=== PATIENT | male | born 1990 | race Caucasian/White ===

== ENCOUNTER 2017-07-30 13:36 | Emergency (ER) | payer SELFPAY ==
[2017-07-30] MEDS ORDERED: ACETAMINOPHEN 325 MG TABLET PO ONE (14:46)
--- NOTE | 2017-07-30 14:47 | ER Document Report ---
HPI - HPI Patient complains to provider of: r hand injury Onset: Other - 3 days Onset/Duration: Persistent Quality of pain: Achy Pain Level: 1 Context: Patient states that he punched a door 2 days ago injuring his right hand. Patient states he has had some hand swelling. Patient states he has been using his hand normally since then. Associated Symptoms: Other - Right hand tenderness with swelling Exacerbated by: Movement Relieved by: Denies Similar symptoms previously: No Recently seen / treated by doctor: No - ROS ROS below otherwise negative: Yes Systems Reviewed and Negative: Yes All other systems reviewed and negative - CONSTITUTIONAL Constitutional: DENIES: Fever - MUSCULOSKELETAL Musculoskeletal: REPORTS: Extremity pain - right hand, Swelling - DERM Skin Color: Normal Past Medical History - General Information source: Patient - Social History Smoking Status: Current Every Day Smoker Chew tobacco use (# tins/day): No Smoking Education Provided: Yes Frequency of alcohol use: None Drug Abuse: None Lives with: Family Family History: Reviewed & Not Pertinent Patient has suicidal ideation: No Patient has homicidal ideation: No - Medical History Medical History: Negative Renal/ Medical History: Denies: Hx Peritoneal Dialysis Surgical Hx: Negative - Immunizations Hx Diphtheria, Pertussis, Tetanus Vaccination: No Vertical Provider Document - CONSTITUTIONAL Agree With Documented VS: Yes Exam Limitations: No Limitations General Appearance: WD/WN, No Apparent Distress - INFECTION CONTROL TRAVEL OUTSIDE OF THE [place] IN LAST 30 DAYS: No - HEENT HEENT: Atraumatic, Normocephalic - NECK Neck: Supple - RESPIRATORY Respiratory: No Respiratory Distress O2 Sat by Pulse Oximetry: 98 - CARDIOVASCULAR Pulses: Normal: Radial - MUSCULOSKELETAL/EXTREMETIES Musculoskeletal/Extremeties: MAEW, FROM, Tender - r hand tenderness over 5th MC , Edema. negative: Eccymosis - NEURO Level of Consciousness: Awake, Alert, Appropriate Motor/Sensory: No Motor Deficit - DERM Integumentary: Warm, Dry, No Rash Course - Re-evaluation Re-evalutation: 07/30/17 15:54 Controlled substance database reviewed Smoking cessation handout provided to patient Discussed with patient importance of follow-up with account review specialist for further management. Patient verbalized understanding and agrees with plan of care. - Vital Signs Vital signs: Temp Pulse Resp BP Pulse Ox 98.1 F 95 18 135/97 H 98 07/30/17 13:54 07/30/17 13:54 07/30/17 13:54 07/30/17 13:54 07/30/17 13:54 - Diagnostic Test Radiology reviewed: Image reviewed, Reports reviewed Procedures - Immobilization Right Hand Pre-Proc Neuro Vasc Exam: Normal Immobilizer type: Ulnar Performed by: PCT Post-Proc Neuro Vasc Exam: Normal Alignment checked and good: Yes Discharge - Discharge Clinical Impression: Fracture of fifth metacarpal bone Qualifiers: Encounter type: initial encounter Fracture type: closed Metacarpal location: shaft Fracture alignment: displaced Laterality: right Qualified Code(s): S62.326A - Displaced fracture of shaft of fifth metacarpal bone, right hand, initial encounter for closed fracture Condition: Stable Disposition: HOME, SELF-CARE Instructions: Fractured Fifth Metacarpal ([facility]), Ice & Elevation ([facility]), Oral Narcotic Medication ([facility]), Splint Precautions ([facility]) Additional Instructions: Return immediately for any new or worsening symptoms Followup with your primary care provider, call tomorrow to make a followup appointment It is important that you follow-up with an account review specialist for further management of your hand fracture, call tomorrow to make a follow-up appointment. Let them know that you are seen in the emergency department Prescriptions: Hydrocodone/Acetaminophen [Jetmore 5-325 Tablet] 1 each PO Q4 PRN #15 tablet PRN Reason: Forms: Smoking Cessation Education, Return to Work Referrals: [facility] [Provider Group] - Follow up tomorrow CASSIA LEE MD [ACTIVE STAFF] - Follow up tomorrow
--- NOTE | 2017-07-30 15:28 | RADIOLOGY REPORT (SQ) ---
EXAM DESCRIPTION: HAND RIGHT 3 VIEWS COMPLETED DATE/TIME: 07/30/2017 3:15 pm REASON FOR STUDY: punched door, r hand pain COMPARISON: None. EXAM PARAMETERS: NUMBER OF VIEWS: Three views. TECHNIQUE: AP, lateral and oblique radiographic images acquired of the right hand. LIMITATIONS: None. FINDINGS: MINERALIZATION: Normal. BONES: Acute fracture involving the distal aspect of the 5th metacarpal. There is mild displacement and moderate angulation. Small bony densities adjacent to the seconds metacarpophalangeal joint whic h appear chronic. JOINTS: No effusions. SOFT TISSUES: Associated soft tissue swelling. OTHER: No other significant finding. IMPRESSION: Acute fracture involving the 5th metacarpal TECHNICAL DOCUMENTATION: JOB ID: [id number] [employer]- All Rights Reserved
[2017-07-30 16:33] VITALS: BP 128/79
== END 2017-07-30 16:32 | disposition home or self-care (01) ==
LOC: ER 13:36
DX: S62.326A Displaced fracture of shaft of fifth metacarpal bone, right hand, initial encounter for closed fracture (principal); M79.641 Pain in right hand; W22.8XXA Striking against or struck by other objects, initial encounter; F17.200 Nicotine dependence, unspecified, uncomplicated
CPT/HCPCS: 99283

== ENCOUNTER 2017-09-18 14:57 | Inpatient (IN) | payer SELFPAY ==
[2017-09-18] MEDS ORDERED: NORMAL SALINE 1000 ML 1,000 ML IV ONE ×2 (16:42→19:59)
--- NOTE | 2017-09-18 16:43 | ER Document Report ---
ED GI/ - General Chief Complaint: Urinary Problem Stated Complaint: BLOOD IN URINE Time Seen by Provider: 09/18/17 15:37 Mode of Arrival: Ambulatory Information source: Patient Notes: 26-year-old male presents to ED for complaint of blood in his urine 2 days with body cramping. He states that he started lifting weights on September 15 and he started noticing blood in his urine on September 16. He states the muscle cramps in his arms and chest started on the . He states he became more concerned so he came to the emergency room to have this checked out. TRAVEL OUTSIDE OF THE [place] IN LAST 30 DAYS: No - HPI Patient complains to provider of: Hematuria, Other - Muscle cramping Onset: Other - September 16 Quality of pain: Cramping Severity at maximum: Moderate Severity in ED: Moderate Pain Level: 2 Associated symptoms: Hematuria, Other - Muscle cramping Exacerbated by: Denies Relieved by: Denies Similar symptoms previously: Yes Recently seen / treated by doctor: No - Related Data Allergies/Adverse Reactions: No Known Allergies Allergy (Verified 09/18/17 14:58) Past Medical History - General Information source: Patient - Social History Smoking Status: Current Every Day Smoker Cigarette use (# per day): No Chew tobacco use (# tins/day): No Smoking Education Provided: No Frequency of alcohol use: Occasional Drug Abuse: None Lives with: Family Family History: Reviewed & Not Pertinent Patient has suicidal ideation: No Patient has homicidal ideation: No - Past Medical History Cardiac Medical History: Reports: None Pulmonary Medical History: Reports: None EENT Medical History: Reports: None Neurological Medical History: Reports: None Endocrine Medical History: Reports: None Renal/ Medical History: Reports: None Malignancy Medical History: Reports None GI Medical History: Reports: None Musculoskeltal Medical History: Reports None Skin Medical History: Reports None Psychiatric Medical History: Reports: None Traumatic Medical History: Reports: None Infectious Medical History: Reports: None Surgical Hx: Negative Past Surgical History: Reports: None - Immunizations Hx Diphtheria, Pertussis, Tetanus Vaccination: No Review of Systems - Review of Systems Notes: Constitutional: [PRESENT: as per HPI. ABSENT: chills, fever(s), headache(s), weight gain, weight loss] Eyes: [ABSENT: visual disturbances] Ears: [ABSENT: hearing changes] Cardiovascular: [ABSENT: chest pain, dyspnea on exertion, edema, orthropnea, palpitations] Respiratory: [ABSENT: cough, hemoptysis] Gastrointestinal: [ABSENT: abdominal pain, constipation, diarrhea, hematemesis, hematochezia, nausea, vomiting] Genitourinary: [ABSENT: dysuria] anterior since September 15 Musculoskeletal: [ABSENT: joint swelling] muscle spasms to arms chest back Integumentary: [ABSENT: rash, wounds] Neurological: [ABSENT: abnormal gait, abnormal speech, confusion, dizziness, focal weakness, syncope] Psychiatric: [ABSENT: anxiety, depression, homicidal ideation, suicidal ideation ] Endocrine: [ABSENT: cold intolerance, heat intolerance, menstrual abnormalities , polydipsia, polyuria] Hematologic/Lymphatic: [ABSENT: easy bleeding, easy bruising, lymphadenopathy] Physical Exam - Vital signs Vitals: Temp Pulse Resp BP Pulse Ox 98.6 F 99 16 160/91 H 99 09/18/17 15:13 09/18/17 15:13 09/18/17 15:13 09/18/17 15:13 09/18/17 15:13 - Notes Notes: PHYSICAL EXAMINATION: GENERAL: Well-appearing, well-nourished and in no acute distress. HEAD: Atraumatic, normocephalic. EYES: Pupils equal round and reactive to light, extraocular movements intact, sclera anicteric, conjunctiva are normal. ENT: Nares patent, oropharynx clear without exudates. Moist mucous membranes. NECK: Normal range of motion, supple without lymphadenopathy LUNGS: Breath sounds clear to auscultation bilaterally and equal. No wheezes rales or rhonchi. HEART: Regular rate and rhythm without murmurs ABDOMEN: Soft, nontender, nondistended abdomen. No guarding, no rebound. No masses appreciated. Musculoskeletal: Normal range of motion, no pitting or edema. No cyanosis. NEUROLOGICAL: Cranial nerves grossly intact. Normal speech, normal gait. Normal sensory, motor exams PSYCH: Normal mood, normal affect. SKIN: Warm, Dry, normal turgor, no rashes or lesions noted. Course - Vital Signs Vital signs: Temp Pulse Resp BP Pulse Ox 98.3 F 68 19 140/81 H 98 09/18/17 21:05 09/18/17 23:03 09/18/17 22:02 09/18/17 22:02 09/18/17 22:02 - Laboratory Result Diagrams: 09/18/17 17:16 Laboratory results interpreted by me: 09/18/17 09/18/17 09/18/17 15:02 17:16 17:16 AST 2000 H ALT 581 H Creatine Kinase > 885571 H Urine Protein 100 H Urine Blood LARGE H Discharge - Discharge Clinical Impression: Rhabdomyolysis Qualifiers: Rhabdomyolysis type: non-traumatic Qualified Code(s): M62.82 - Rhabdomyolysis Disposition: ADMITTED INPATIENT Admitting Provider: Hospitalist - [facility] Unit Admitted: Telemetry
[2017-09-18 17:20] LABS: APPEARANCE,URINE CLEAR; BILIRUBIN,URINE NEGATIVE (NEGATIVE); COLOR,URINE AMBER; GLUCOSE, URINE NEGATIVE (NEGATIVE); KETONES,URINE NEGATIVE (NEGATIVE); LEUKOCYTE ESTERASE,URINE NEGATIVE (NEGATIVE); NITRITE,URINE NEGATIVE (NEGATIVE); PROTEIN,URINE 100 mg/dL (NEGATIVE); URINE SPECIFIC GRAVITY 1.011; UROBILINOGEN,URINE NEGATIVE mg/dL (<2.0)
[2017-09-18 17:47] LABS: ALANINE AMINOTRANSFERASE 581 U/L (21-72); ALBUMIN 4.3 g/dL (3.5-5.0); ALKALINE PHOSPHATASE 48 U/L (38-126); ANION GAP 9 (5-19); BILIRUBIN,DIRECT 0.1 mg/dL (0.0-0.4); BILIRUBIN,TOTAL 0.5 mg/dL (0.2-1.3); BLOOD UREA NITROGEN 7 mg/dL (7-20); CARBON DIOXIDE 30 mmol/L (22-30); CHLORIDE 103 mmol/L (98-107); GLUCOSE 104 mg/dL (75-110); POTASSIUM 3.7 mmol/L (3.6-5.0); SODIUM 142.2 mmol/L (137-145); TOTAL PROTEIN 6.3 g/dL (6.3-8.2)
[2017-09-18 18:09] LABS: ASPARTATE AMINO TRANSFERASE 2000 U/L (17-59)
[2017-09-18 19:34] LABS: INTERNATIONAL RATION (INR) 0.92; PARTIAL THROMBOPLASTIN TIME 25.2 SEC (23.5-35.8); PROTHROMBIN TIME 13.1 SEC (11.4-15.4)
[2017-09-18] MEDS: NORMAL SALINE 1000 ML 1,000 ML IV PRN ×2 (20:01→21:08)
[2017-09-18 20:46] LABS: CREATINE KINASE > 160000 U/L (55-170)
[2017-09-18 21:25] LABS: ARTERIAL BLOOD BASE EXCESS 0 mmol/L; ARTERIAL BLOOD HCO3 26.5 mmol/L (20-26); ARTERIAL BLOOD O2 SATURATION 47.6 % (94-98); ARTERIAL BLOOD PCO2 49.8 mmHg (35-45); ARTERIAL BLOOD PH 7.34 (7.35-7.45)
[2017-09-18 21:29] LABS: ARTERIAL BLOOD FIO2 ROOM AIR; ARTERIAL BLOOD PO2 27.6 mmHg (80-100)
[2017-09-18] MEDS ORDERED: ACETAMINOPHEN 325 MG TABLET PO PRN (21:43)
[2017-09-18] MEDS ORDERED: PROMETHAZINE HCL INJ 25 MG/1 ML VIAL IV PRN (21:43)
[2017-09-18] MEDS ORDERED: INFLUENZA ADLT QUAD (36MOS+) 2017-18 VAC 0.5 ML SYR IM PRN (23:11)
--- NOTE | 2017-09-19 04:19 | PDOC H&P ---
History of Present Illness Admission Date/PCP: 09/18/17 20:52 Patient complains of: Hematuria and increase muscle cramps for the last 3-4 days. History of Present Illness: AASHISH SANDS is a 26 year old male smoker with no significant medical history was admitted with above-mentioned complaints. According to the patient , he started lifting weights on 09/15/2016 for about 2 hours. He felt muscle tightness but he did it again the following day. He noticed that he had dark, bloody urine so he did not exercise on 09/17/2017 and decided to come to the hospital today for further management and treatment. He denied any chest pain, shortness of breath, fever chills, nausea, vomiting or any abdominal pain, diarrhea or constipation or dysuria. He also denied any focal weakness. In the ED, his temperature was 98.6, heart rate 99, respiratory rate 16, blood pressure 160/91 with oxygen saturation of 99% on room air. His CPK was more than 160,000 and he had elevated AST/ALT. His UA showed large blood. He received 3 L of normal saline and was started on normal saline at 200 mL/h. Past Medical History Cardiac Medical History: Reports: None Pulmonary Medical History: Reports: None EENT Medical History: Reports: None Neurological Medical History: Reports: None Endocrine Medical History: Reports: None Renal/ Medical History: Reports: None Malignancy Medical History: Reports: None GI Medical History: Reports: None Musculoskeltal Medical History: Reports: None Skin Medical History: Reports: None Psychiatric Medical History: Reports: None Traumatic Medical History: Reports: None Infectious Medical History: Reports: None Past Surgical History Past Surgical History: Reports: None Social History Lives with: Family Smoking Status: Current Every Day Smoker Cigarettes Packs Per Day: 0.5 - For 5-6 year Frequency of Alcohol Use: None Hx Recreational Drug Use: No - Advance Directive Resuscitation Status: Full Code Family History Parental Family History Reviewed: Yes - No cardiac or diabetic family history. Children Family History Reviewed: No Sibling(s) Family History Reviewed.: Yes Medication/Allergy Home Medications: No Home Medications 09/18/17 Allergies/Adverse Reactions: No Known Allergies Allergy (Verified 09/18/17 14:58) Review of Systems ROS unobtainable: Other - Pertinent positives and negatives as detailed in the HPI. Physical Exam Vital Signs: Temp Pulse Resp BP Pulse Ox 98.3 F 73 16 144/94 H 99 09/18/17 21:05 09/18/17 21:05 09/18/17 21:05 09/18/17 21:05 09/18/17 21:05 General appearance: PRESENT: no acute distress, well-developed, well-nourished Head exam: PRESENT: atraumatic, normocephalic Eye exam: PRESENT: conjunctiva pink, PERRLA. ABSENT: scleral icterus Mouth exam: PRESENT: moist, tongue midline Neck exam: PRESENT: full ROM Respiratory exam: PRESENT: clear to auscultation jessica. ABSENT: rales, rhonchi, wheezes Cardiovascular exam: PRESENT: RRR, +S1, +S2 Pulses: PRESENT: normal dorsalis pedis pul GI/Abdominal exam: PRESENT: normal bowel sounds, soft. ABSENT: distended, guarding, rebound, tenderness Rectal exam: PRESENT: deferred Extremities exam: PRESENT: full ROM Neurological exam: PRESENT: alert, altered, awake, oriented to person, oriented to place, oriented to time. ABSENT: CN II-XII grossly intact, motor sensory deficit Skin exam: PRESENT: dry, warm. ABSENT: erythema Results Laboratory Results: 09/18/17 21:00 Carbonic Acid 1.50 H HCO3/H2CO3 Ratio 17:1 ABG pH 7.34 L ABG pCO2 49.8 H ABG pO2 27.6 L* ABG HCO3 26.5 H ABG O2 Saturation 47.6 L ABG Base Excess 0 FiO2 ROOM AIR Assessment & Plan - Diagnosis (1) Rhabdomyolysis Qualifiers: Rhabdomyolysis type: non-traumatic Qualified Code(s): M62.82 - Rhabdomyolysis Is this a current diagnosis for this admission?: Yes Plan: We will continue aggressive hydration and follow-up serial CPK. (2) Elevated transaminase level Is this a current diagnosis for this admission?: Yes Plan: In the setting of rhabdomyolysis. We will continue aggressive hydration and follow-up CMP. Hepatitis profile was ordered by the ED. He denied any alcohol. (3) Smoker Is this a current diagnosis for this admission?: Yes Plan: less than 1ppd for 5-6 years. He is trying to quit him. He refused a nicotine patch (4) Hematuria Qualifiers: Hematuria type: unspecified type Qualified Code(s): R31.9 - Hematuria, unspecified Is this a current diagnosis for this admission?: Yes Plan: secondary to rhabdo. Management per #1.
[2017-09-19 05:38] LABS: HEMATOCRIT 42.2 % (37.9-51.0); HEMOGLOBIN 14.7 g/dL (13.5-17.0); MEAN CORPUSCULAR HEMOGLOBIN 31.3 pg (27.0-33.4); MEAN CORPUSCULAR HGB CONC 34.9 g/dL (32.0-36.0); MEAN CORPUSCULAR VOLUME 90 fl (80-97); PLATELET COUNT 198 10^3/uL (150-450); RED BLOOD COUNT 4.71 10^6/uL (4.35-5.55); RED CELL DISTRIBUTION WIDTH 13.4 % (11.5-14.0); WHITE BLOOD COUNT 7.7 10^3/uL (4.0-10.5)
[2017-09-19 06:03] LABS: ALANINE AMINOTRANSFERASE 563 U/L (21-72); ALBUMIN 3.2 g/dL (3.5-5.0); ALKALINE PHOSPHATASE 37 U/L (38-126); ANION GAP 5 (5-19); BILIRUBIN,DIRECT 0.4 mg/dL (0.0-0.4); BILIRUBIN,TOTAL 0.6 mg/dL (0.2-1.3); BLOOD UREA NITROGEN 7 mg/dL (7-20); CALCIUM 9.2 mg/dL (8.4-10.2); CARBON DIOXIDE 29 mmol/L (22-30); CHLORIDE 109 mmol/L (98-107); GLUCOSE 88 mg/dL (75-110); POTASSIUM 4.2 mmol/L (3.6-5.0); SODIUM 142.7 mmol/L (137-145); TOTAL PROTEIN 5.3 g/dL (6.3-8.2)
[2017-09-19 06:29] LABS: ASPARTATE AMINO TRANSFERASE 2036 U/L (17-59)
--- NOTE | 2017-09-19 08:27 | RADIOLOGY REPORT (SQ) ---
EXAM DESCRIPTION: U/S ABDOMEN LIMITED W/O DOP COMPLETED DATE/TIME: 09/19/2017 7:35 am REASON FOR STUDY: elevated liver enzymes/ COMPARISON: None. TECHNIQUE: Dynamic and static grayscale images acquired of the abdomen and recorded on PACS. Additio nal selected color Doppler and spectral images recorded. LIMITATIONS: None. FINDINGS: PANCREAS: No masses. Visualized pancreatic duct normal caliber. LIVER: No masses. Echotexture normal. LIVER VASCULATURE: Normal directional flow of the main portal vein and hepatic veins. GALLBLADDER: No stones. Normal wall thickness. No pericholecystic fluid. ULTRASOUND-DETECTED OLIVARES'S SIGN: Negative. INTRAHEPATIC DUCTS AND COMMON DUCT: CBD and intrahepatic ducts normal caliber. No filling defects. INFERIOR VENA CAVA: Normal flow. AORTA: No aneurysm. RIGHT KIDNEY: Normal size. Normal echogenicity. No solid or suspicious masses. No hydronephrosis. No calcifications. PERITONEAL AND RIGHT PLEURAL SPACE: No ascites or effusions. OTHER: No other significant findings. IMPRESSION: NORMAL RIGHT UPPER QUADRANT ULTRASOUND. TECHNICAL DOCUMENTATION: JOB ID: [id number] All Rights Reserved Reading location - IP/workstation name: [email or web address]
--- NOTE | 2017-09-19 12:12 | PDOC PROGRESS REPORT ---
Subjective Progress Note for:: 09/19/17 Subjective:: Mr. Cancino is still feeling diffuse myalgias. He states his urine has cleared to a normal light yellow color. No evidence of bleeding. No chest pain or difficulty breathing. No flank pain. No headache or vision changes. No unusual weakness or confusion. Reason For Visit: RHABDOMYOLYSIS Physical Exam Vital Signs: Temp Pulse Resp BP Pulse Ox 98.3 F 58 L 19 124/79 100 09/19/17 07:14 09/19/17 07:14 09/19/17 07:14 09/19/17 07:14 09/19/17 07:14 Intake & Output 09/18/17 09/19/17 09/20/17 06:59 06:59 06:59 Intake Total 2800 Balance 2800 General appearance: PRESENT: no acute distress, cooperative, well-developed, well-nourished Head exam: PRESENT: atraumatic, normocephalic Eye exam: PRESENT: conjunctiva pink, EOMI. ABSENT: periorbital swelling Ear exam: PRESENT: normal external ear exam. ABSENT: drainage Mouth exam: PRESENT: neck supple Neck exam: PRESENT: full ROM. ABSENT: lymphadenopathy Respiratory exam: PRESENT: clear to auscultation jessica. ABSENT: rales, rhonchi, wheezes Cardiovascular exam: PRESENT: RRR. ABSENT: systolic murmur Pulses: PRESENT: normal radial pulses GI/Abdominal exam: PRESENT: normal bowel sounds, soft. ABSENT: distended, guarding, tenderness Rectal exam: PRESENT: deferred Extremities exam: ABSENT: joint swelling, pedal edema, tenderness, +1 edema Musculoskeletal exam: PRESENT: normal inspection Neurological exam: PRESENT: alert, awake, oriented to person, oriented to place , oriented to situation, CN II-XII grossly intact Psychiatric exam: PRESENT: appropriate affect. ABSENT: anxious Skin exam: PRESENT: dry, intact, warm Results Laboratory Results: 09/19/17 04:45 09/19/17 04:45 09/18/17 09/19/17 09/19/17 21:00 04:45 04:45 WBC 7.7 RBC 4.71 Hgb 14.7 Hct 42.2 MCV 90 MCH 31.3 MCHC 34.9 RDW 13.4 Plt Count 198 Carbonic Acid 1.50 H HCO3/H2CO3 Ratio 17:1 ABG pH 7.34 L ABG pCO2 49.8 H ABG pO2 27.6 L* ABG HCO3 26.5 H ABG O2 Saturation 47.6 L ABG Base Excess 0 FiO2 ROOM AIR Sodium 142.7 Potassium 4.2 Chloride 109 H Carbon Dioxide 29 Anion Gap 5 BUN 7 Creatinine 0.86 Est GFR ( Amer) > 60 Est GFR (Non-Af Amer) > 60 Glucose 88 Calcium 9.2 Total Bilirubin 0.6 AST 2036 H ALT 563 H Alkaline Phosphatase 37 L Total Protein 5.3 L Albumin 3.2 L 09/18/17 23:21 Creatine Kinase 220566 H Impressions: Abdomen Ultrasound 09/19/17 00:00 IMPRESSION: NORMAL RIGHT UPPER QUADRANT ULTRASOUND. Assessment & Plan - Diagnosis (1) Rhabdomyolysis Qualifiers: Rhabdomyolysis type: non-traumatic Qualified Code(s): M62.82 - Rhabdomyolysis Is this a current diagnosis for this admission?: Yes Plan: This is secondary to aggressive weight lifting. Patient states he does not take any steroids or other supplements. Weightlifting safety education provided. We will continue with aggressive hydration and monitoring of serial CPK. At this point his renal function is normal. We will continue to monitor. (2) Elevated transaminase level Is this a current diagnosis for this admission?: Yes Plan: Possibly secondary to the rhabdomyolysis. His right upper quadrant ultrasound is normal. We will continue to treat rhabdomyolysis and follow LFTs. Hepatitis panel pending. (3) Smoker Is this a current diagnosis for this admission?: Yes Plan: We will encourage cessation. He smokes less than 1 pack per day for 5-6 years. As already noted he is trying to quit and does not want a nicotine patch. - Time Time Spent with patient: 25-34 minutes Medications reviewed and adjusted accordingly: Yes Anticipated discharge: Home - Inpatient Certification Based on my medical assessment, after consideration of the patient's comorbidities, presenting symptoms, or acuity I expect that the services needed warrant INPATIENT care.: Yes I certify that my determination is in accordance with my understanding of Medicare's requirements for reasonable and necessary INPATIENT services [42 CFR 412.3e].: Yes Medical Necessity: Need Close Monitoring Due to Risk of Patient Decompensation, Risk of Complication if Not Cared For in Hospital
[2017-09-19] MEDS: NORMAL SALINE 1000 ML 1,000 ML IV PRN (20:19)
[2017-09-20 03:37] LABS: HEPATITIS A AB IGM Negative (Negative); HEPATITIS B CORE AB IGM Negative (Negative); HEPATITS B SURFACE ANTIGEN Negative (Negative)
[2017-09-20 06:03] LABS: HEMOGLOBIN 14.7 g/dL (13.5-17.0); MEAN CORPUSCULAR HEMOGLOBIN 30.9 pg (27.0-33.4); MEAN CORPUSCULAR HGB CONC 34.3 g/dL (32.0-36.0); MEAN CORPUSCULAR VOLUME 90 fl (80-97); PLATELET COUNT 192 10^3/uL (150-450); RED BLOOD COUNT 4.77 10^6/uL (4.35-5.55); RED CELL DISTRIBUTION WIDTH 13.2 % (11.5-14.0); WHITE BLOOD COUNT 6.3 10^3/uL (4.0-10.5)
[2017-09-20 06:20] LABS: ANION GAP 6 (5-19); BLOOD UREA NITROGEN 5 mg/dL (7-20); CALCIUM 9.4 mg/dL (8.4-10.2); CARBON DIOXIDE 29 mmol/L (22-30); CHLORIDE 107 mmol/L (98-107); GLUCOSE 112 mg/dL (75-110); POTASSIUM 3.9 mmol/L (3.6-5.0); SODIUM 142.1 mmol/L (137-145)
[2017-09-20] MEDS: NORMAL SALINE 1000 ML 1,000 ML IV PRN (06:39)
[2017-09-20 12:44] LABS: ALANINE AMINOTRANSFERASE 653 U/L (21-72); ALBUMIN 3.3 g/dL (3.5-5.0); ALKALINE PHOSPHATASE 41 U/L (38-126); BILIRUBIN,DIRECT 0.2 mg/dL (0.0-0.4); BILIRUBIN,TOTAL 0.4 mg/dL (0.2-1.3); TOTAL PROTEIN 5.2 g/dL (6.3-8.2)
[2017-09-20 13:09] LABS: ASPARTATE AMINO TRANSFERASE 1922 U/L (17-59)
[2017-09-20 17:03] LABS: HEPATITIS C VIRUS ANTIBODY <0.1 s/co ratio (0.0-0.9)
[2017-09-20 18:02] LABS: APPEARANCE,URINE SLIGHTLY-CLOUDY; BILIRUBIN,URINE NEGATIVE (NEGATIVE); COLOR,URINE YELLOW; GLUCOSE, URINE NEGATIVE (NEGATIVE); KETONES,URINE NEGATIVE (NEGATIVE); LEUKOCYTE ESTERASE,URINE NEGATIVE (NEGATIVE); NITRITE,URINE NEGATIVE (NEGATIVE); PROTEIN,URINE 30 mg/dL (NEGATIVE); URINE SPECIFIC GRAVITY 1.009; UROBILINOGEN,URINE NEGATIVE mg/dL (<2.0)
--- NOTE | 2017-09-20 18:31 | PDOC PROGRESS REPORT ---
Subjective Progress Note for:: 09/20/17 Subjective:: Patient's achiness is improving and almost resolved. He is urinating without difficulty. Urine color is normal yellow. No abdominal pain nausea or vomiting. He sleeping well. Eating and drinking well. Ambulating without difficulty. Reason For Visit: RHABDOMYOLYSIS Physical Exam Vital Signs: Temp Pulse Resp BP Pulse Ox 98.6 F 71 18 142/88 H 100 09/20/17 15:44 09/20/17 15:44 09/20/17 15:44 09/20/17 15:44 09/20/17 15:44 Intake & Output 09/19/17 09/20/17 09/21/17 06:59 06:59 07:59 Intake Total 2800 6077 2900 Output Total 1825 Balance 2800 4252 2900 Weight 97.7 kg General appearance: PRESENT: no acute distress, cooperative, well-developed, well-nourished Head exam: PRESENT: atraumatic, normocephalic Eye exam: PRESENT: conjunctiva pink Ear exam: PRESENT: normal external ear exam Mouth exam: PRESENT: neck supple, tongue midline Respiratory exam: PRESENT: clear to auscultation jessica, unlabored. ABSENT: rales , rhonchi, wheezes Cardiovascular exam: PRESENT: RRR. ABSENT: systolic murmur Pulses: PRESENT: normal radial pulses Vascular exam: PRESENT: normal capillary refill GI/Abdominal exam: PRESENT: normal bowel sounds, soft. ABSENT: distended, guarding, tenderness Extremities exam: ABSENT: pedal edema Musculoskeletal exam: PRESENT: normal inspection Neurological exam: PRESENT: alert, awake, oriented to person, oriented to place , oriented to situation, CN II-XII grossly intact Psychiatric exam: PRESENT: appropriate affect. ABSENT: anxious Skin exam: PRESENT: dry, warm Results Laboratory Results: 09/20/17 05:38 09/20/17 05:38 09/20/17 09/20/17 09/20/17 05:38 05:38 05:38 WBC 6.3 RBC 4.77 Hgb 14.7 Hct 43.0 MCV 90 MCH 30.9 MCHC 34.3 RDW 13.2 Plt Count 192 Sodium 142.1 Potassium 3.9 Chloride 107 Carbon Dioxide 29 Anion Gap 6 BUN 5 L Creatinine 0.74 Est GFR ( Amer) > 60 Est GFR (Non-Af Amer) > 60 Glucose 112 H Calcium 9.4 Total Bilirubin 0.4 AST 1922 H ALT 653 H Alkaline Phosphatase 41 Total Protein 5.2 L Albumin 3.3 L Urine Color Urine Appearance Urine pH Ur Specific Ford Urine Protein Urine Glucose (UA) Urine Ketones Urine Blood Urine Nitrite Ur Leukocyte Esterase Urine WBC (Auto) 09/20/17 17:42 WBC RBC Hgb Hct MCV MCH MCHC RDW Plt Count Sodium Potassium Chloride Carbon Dioxide Anion Gap BUN Creatinine Est GFR ( Amer) Est GFR (Non-Af Amer) Glucose Calcium Total Bilirubin AST ALT Alkaline Phosphatase Total Protein Albumin Urine Color YELLOW Urine Appearance SLIGHTLY-CLOUDY Urine pH 8.0 Ur Specific Ford 1.009 Urine Protein 30 H Urine Glucose (UA) NEGATIVE Urine Ketones NEGATIVE Urine Blood LARGE H Urine Nitrite NEGATIVE Ur Leukocyte Esterase NEGATIVE Urine WBC (Auto) 1 09/18/17 09/19/17 09/19/17 23:21 14:57 22:35 Creatine Kinase 718281 H 484307 H 074659 H Impressions: Abdomen Ultrasound 09/19/17 00:00 IMPRESSION: NORMAL RIGHT UPPER QUADRANT ULTRASOUND. Assessment & Plan - Diagnosis (1) Rhabdomyolysis Qualifiers: Rhabdomyolysis type: non-traumatic Qualified Code(s): M62.82 - Rhabdomyolysis Is this a current diagnosis for this admission?: Yes Plan: CPK is trending down. Still greater than 100,000. We will continue IV fluids and recheck tomorrow. (2) Elevated transaminase level Is this a current diagnosis for this admission?: Yes Plan: Transaminases are leveling off. Right upper quadrant ultrasound normal. Hepatitis panel pending. (3) Smoker Is this a current diagnosis for this admission?: Yes Plan: Tobacco cessation counseling performed today for 4 minutes. - Time Time Spent with patient: 25-34 minutes Anticipated discharge: Home - Inpatient Certification Based on my medical assessment, after consideration of the patient's comorbidities, presenting symptoms, or acuity I expect that the services needed warrant INPATIENT care.: Yes I certify that my determination is in accordance with my understanding of Medicare's requirements for reasonable and necessary INPATIENT services [42 CFR 412.3e].: Yes Medical Necessity: Need For IV Fluids, Risk of Complication if Not Cared For in Hospital
[2017-09-21] MEDS: NORMAL SALINE 1000 ML 1,000 ML IV PRN ×3 (05:48→16:14)
[2017-09-21 06:44] LABS: HEMATOCRIT 43.2 % (37.9-51.0); HEMOGLOBIN 15.3 g/dL (13.5-17.0); MEAN CORPUSCULAR HEMOGLOBIN 31.4 pg (27.0-33.4); MEAN CORPUSCULAR HGB CONC 35.4 g/dL (32.0-36.0); MEAN CORPUSCULAR VOLUME 89 fl (80-97); PLATELET COUNT 204 10^3/uL (150-450); RED BLOOD COUNT 4.87 10^6/uL (4.35-5.55); RED CELL DISTRIBUTION WIDTH 12.9 % (11.5-14.0); WHITE BLOOD COUNT 7.9 10^3/uL (4.0-10.5)
[2017-09-21 07:09] LABS: ALANINE AMINOTRANSFERASE 678 U/L (21-72); ALBUMIN 3.8 g/dL (3.5-5.0); ALKALINE PHOSPHATASE 44 U/L (38-126); ANION GAP 10 (5-19); BILIRUBIN,DIRECT 0.1 mg/dL (0.0-0.4); BILIRUBIN,TOTAL 0.4 mg/dL (0.2-1.3); BLOOD UREA NITROGEN 9 mg/dL (7-20); CARBON DIOXIDE 27 mmol/L (22-30); CHLORIDE 104 mmol/L (98-107); GLUCOSE 102 mg/dL (75-110); TOTAL PROTEIN 5.8 g/dL (6.3-8.2)
[2017-09-21 07:34] LABS: ASPARTATE AMINO TRANSFERASE 1762 U/L (17-59)
[2017-09-21] MEDS ORDERED: NORMAL SALINE 1000 ML 1,000 ML IV PRN (17:23)
--- NOTE | 2017-09-21 17:24 | PDOC PROGRESS REPORT ---
Subjective Progress Note for:: 09/21/17 Subjective:: Mr. Cancino is now pain-free. He is urinating without difficulty. He has yellow urine. No abdominal pain including no right upper quadrant pain. Eating and drinking well. Ambulating without difficulty. No fever or chills. Reason For Visit: RHABDOMYOLYSIS Physical Exam Vital Signs: Temp Pulse Resp BP Pulse Ox 97.6 F 91 15 141/90 H 98 09/20/17 23:34 09/21/17 14:00 09/20/17 23:34 09/20/17 23:34 09/20/17 23:34 Intake & Output 09/20/17 09/21/17 09/22/17 05:59 06:59 06:59 Intake Total 180 Output Total Balance 180 Weight General appearance: PRESENT: no acute distress, cooperative, well-developed, well-nourished Head exam: PRESENT: atraumatic, normocephalic Eye exam: PRESENT: conjunctiva pink, EOMI Mouth exam: PRESENT: moist, tongue midline Respiratory exam: PRESENT: clear to auscultation jessica, unlabored. ABSENT: rales , rhonchi, wheezes Cardiovascular exam: PRESENT: RRR. ABSENT: systolic murmur Pulses: PRESENT: normal radial pulses GI/Abdominal exam: PRESENT: normal bowel sounds, soft. ABSENT: distended, guarding, tenderness Extremities exam: ABSENT: pedal edema Musculoskeletal exam: PRESENT: normal inspection Neurological exam: PRESENT: alert, awake, oriented to person, oriented to place , oriented to situation, CN II-XII grossly intact Psychiatric exam: PRESENT: appropriate affect. ABSENT: anxious Skin exam: PRESENT: dry, intact, warm Results Laboratory Results: 09/21/17 05:47 09/21/17 05:47 09/20/17 09/21/17 09/21/17 17:42 05:47 05:47 WBC 7.9 RBC 4.87 Hgb 15.3 Hct 43.2 MCV 89 MCH 31.4 MCHC 35.4 RDW 12.9 Plt Count 204 Sodium 141.0 Potassium 4.0 Chloride 104 Carbon Dioxide 27 Anion Gap 10 BUN 9 Creatinine 0.67 Est GFR ( Amer) > 60 Est GFR (Non-Af Amer) > 60 Glucose 102 Calcium 10.0 Total Bilirubin 0.4 AST 1762 H ALT 678 H Alkaline Phosphatase 44 Total Protein 5.8 L Albumin 3.8 Urine Color YELLOW Urine Appearance SLIGHTLY-CLOUDY Urine pH 8.0 Ur Specific [place] 1.009 Urine Protein 30 H Urine Glucose (UA) NEGATIVE Urine Ketones NEGATIVE Urine Blood LARGE H Urine Nitrite NEGATIVE Ur Leukocyte Esterase NEGATIVE Urine WBC (Auto) 1 09/18/17 09/19/17 09/19/17 23:21 14:57 22:35 Creatine Kinase 801824 H 486158 H 493283 H 09/20/17 09/21/17 21:42 05:47 Creatine Kinase 139023 H 89500 H Impressions: Abdomen Ultrasound 09/19/17 00:00 IMPRESSION: NORMAL RIGHT UPPER QUADRANT ULTRASOUND. Assessment & Plan - Diagnosis (1) Rhabdomyolysis Qualifiers: Rhabdomyolysis type: non-traumatic Qualified Code(s): M62.82 - Rhabdomyolysis Is this a current diagnosis for this admission?: Yes Plan: CK trending down. Pain resolved. Rate of IV fluids. Continue to monitor LFTs. Renal function normal. (2) Elevated transaminase level Is this a current diagnosis for this admission?: Yes Plan: AST trending down, ALT still with an upward trend. Patient has no abnormalities on abdominal exam. Right upper quadrant is normal. Hepatitis panel normal. We will continue to treat rhabdomyolysis and monitor LFTs. (3) Smoker Is this a current diagnosis for this admission?: Yes Plan: Tobacco cessation counseling will continue. - Time Time Spent with patient: 15-24 minutes Medications reviewed and adjusted accordingly: Yes - Inpatient Certification Based on my medical assessment, after consideration of the patient's comorbidities, presenting symptoms, or acuity I expect that the services needed warrant INPATIENT care.: Yes I certify that my determination is in accordance with my understanding of Medicare's requirements for reasonable and necessary INPATIENT services [42 CFR 412.3e].: Yes Medical Necessity: Need For IV Fluids, Risk of Complication if Not Cared For in Hospital
[2017-09-22 07:31] LABS: ALANINE AMINOTRANSFERASE 597 U/L (21-72); ALBUMIN 3.6 g/dL (3.5-5.0); ALKALINE PHOSPHATASE 41 U/L (38-126); ANION GAP 7 (5-19); BILIRUBIN,DIRECT 0.4 mg/dL (0.0-0.4); BILIRUBIN,TOTAL 0.6 mg/dL (0.2-1.3); BLOOD UREA NITROGEN 10 mg/dL (7-20); CARBON DIOXIDE 27 mmol/L (22-30); CHLORIDE 107 mmol/L (98-107); GLUCOSE 83 mg/dL (75-110); POTASSIUM 4.2 mmol/L (3.6-5.0); SODIUM 140.8 mmol/L (137-145); TOTAL PROTEIN 6.1 g/dL (6.3-8.2)
[2017-09-22 07:43] LABS: ASPARTATE AMINO TRANSFERASE 1065 U/L (17-59)
[2017-09-22 15:16] LABS: APPEARANCE,URINE CLEAR; BILIRUBIN,URINE NEGATIVE (NEGATIVE); COLOR,URINE STRAW; GLUCOSE, URINE NEGATIVE (NEGATIVE); KETONES,URINE NEGATIVE (NEGATIVE); LEUKOCYTE ESTERASE,URINE NEGATIVE (NEGATIVE); NITRITE,URINE NEGATIVE (NEGATIVE); PROTEIN,URINE NEGATIVE (NEGATIVE); URINE SPECIFIC GRAVITY 1.005; UROBILINOGEN,URINE NEGATIVE mg/dL (<2.0)
[2017-09-22 16:23] VITALS: BP 123/64
--- NOTE | 2017-09-22 23:51 | PDOC DISCHARGE SUMMARY ---
General - Admit/Disc Date/PCP Admission Date/Primary Care Provider: 09/18/17 20:52 Discharge Date: 09/22/17 - Discharge Diagnosis (1) Rhabdomyolysis Is this a current diagnosis for this admission?: Yes Summary: Patient was admitted with signs and symptoms consistent with rhabdomyolysis. CK trended down for several days prior to discharge. He was fluid resuscitated. He does not have acute kidney injury but he did have protein in his urine. On discharge the proteinuria had resolved. His urine pH was normal. No acute kidney injury. He knows to push fluids. He was anxious to be discharged from the hospital and so we made the plan that he will have his labs checked within 48 hours at an urgent care. He knows to return to medical care with any pain concerning symptoms including urine changes or abdominal pain. Initially the patient had arm discomfort which completely resolved for discharge. Pulses were always intact. (2) Elevated transaminase level Is this a current diagnosis for this admission?: Yes Summary: Liver enzymes are trending downward. Patient was anxious to leave the hospital he could get to school tomorrow. Dated he was feeling back to normal. He agreed to have labs checked at an urgent care within 48 hours. He knows to return to medical care with any concerning symptoms. On his discharge summary I entered the K AST and ALT numbers so that his doctor at urgent care can use those as a reference. (3) Smoker Is this a current diagnosis for this admission?: Yes Summary: Lack of cessation counseling performed today. For 5 minutes. Patient has been through some very stressful times recently. 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 He feels that at this time tobacco use is a stress reliever and he is not ready to quit. - Additional Information Resuscitation Status: Full Code Discharge Diet: As Tolerated, Regular Discharge Activity: Balance Activity w/Rest, Other Home Medications: No Home Medications 09/18/17 History of Present Illness Patient complains of: Arm muscle discomfort and dark colored urine History of Present Illness: AASHISH SANDS is a 26 year old male AASHISH SANDS is a 26 year old male smoker with no significant medical history was admitted with above-mentioned complaints. According to the patient , he started lifting weights on 09/15/2016 for about 2 hours. He felt muscle tightness but he did it again the following day. He noticed that he had dark, bloody urine so he did not exercise on 09/17/2017 and decided to come to the hospital today for further management and treatment. He denied any chest pain, shortness of breath, fever chills, nausea, vomiting or any abdominal pain, diarrhea or constipation or dysuria. He also denied any focal weakness. In the ED, his temperature was 98.6, heart rate 99, respiratory rate 16, blood pressure 160/91 with oxygen saturation of 99% on room air. His CPK was more than 160,000 and he had elevated AST/ALT. His UA showed large blood. He received 3 L of normal saline and was started on normal saline at 200 mL/h. Hospital Course Hospital Course: See hospital course by problem list. Physical Exam Vital Signs: Temp Pulse Resp BP Pulse Ox 98.2 F 96 18 123/64 98 09/22/17 16:19 09/22/17 16:19 09/22/17 16:19 09/22/17 16:19 09/22/17 16:19 Intake & Output 09/21/17 09/22/17 09/23/17 06:59 06:59 06:59 Intake Total 2580 Output Total Balance 2580 Weight 95.7 kg General appearance: PRESENT: no acute distress, cooperative, well-developed, well-nourished Head exam: PRESENT: atraumatic, normocephalic Eye exam: PRESENT: conjunctiva pink, EOMI. ABSENT: scleral icterus Ear exam: PRESENT: normal external ear exam Mouth exam: PRESENT: moist, tongue midline Respiratory exam: PRESENT: clear to auscultation jessica, unlabored. ABSENT: rales , rhonchi, wheezes Cardiovascular exam: PRESENT: RRR. ABSENT: systolic murmur Pulses: PRESENT: normal radial pulses, normal dorsalis pedis pul GI/Abdominal exam: PRESENT: normal bowel sounds, soft. ABSENT: ascites, distended, guarding, tenderness Extremities exam: ABSENT: pedal edema Musculoskeletal exam: PRESENT: ambulatory, normal inspection Neurological exam: PRESENT: alert, awake, oriented to person, oriented to place , oriented to situation, CN II-XII grossly intact Psychiatric exam: PRESENT: appropriate affect. ABSENT: anxious Skin exam: PRESENT: dry, intact, warm. ABSENT: jaundice, rash Results Laboratory Results: 09/21/17 05:47 09/22/17 06:52 03/06/3009/22/17 09/22/17 06:52 06:52 14:51 Sodium 140.8 Potassium 4.2 Chloride 107 Carbon Dioxide 27 Anion Gap 7 BUN 10 Creatinine 0.70 Est GFR ( Amer) > 60 Est GFR (Non-Af Amer) > 60 Glucose 83 Calcium 10.0 Phosphorus 3.9 Total Bilirubin 0.6 AST 1065 H ALT 597 H Alkaline Phosphatase 41 Total Protein 6.1 L Albumin 3.6 Urine Color STRAW Urine Appearance CLEAR Urine pH 7.0 Ur Specific [place] 1.005 Urine Protein NEGATIVE Urine Glucose (UA) NEGATIVE Urine Ketones NEGATIVE Urine Blood MODERATE H Urine Nitrite NEGATIVE Ur Leukocyte Esterase NEGATIVE Urine WBC (Auto) 0 09/18/17 09/19/17 09/19/17 23:21 14:57 22:35 Creatine Kinase 829225 H 512263 H 149156 H 09/20/17 09/21/17 09/21/17 21:42 05:47 21:30 Creatine Kinase 687574 H 82252 H 63686 H Impressions: Abdomen Ultrasound 09/19/17 00:00 IMPRESSION: NORMAL RIGHT UPPER QUADRANT ULTRASOUND. Qualifiers - * PATEINT BEING DISCHARGED WITH ANY OF THE FOLLOWING DIAGNOSIS?: No
== END 2017-09-22 16:51 | disposition home or self-care (01) | DRG 558 ==
LOC: ER 14:57 → EH 20:52 → UNDOADMIN 20:52 → 4N 23:02
PROVIDERS: ADMIT Internal Medicine Geriatric Medicine; ATTEND Internal Medicine Geriatric Medicine
DX: M62.82 Rhabdomyolysis (principal); F17.210 Nicotine dependence, cigarettes, uncomplicated; R31.9 Hematuria, unspecified; R80.9 Proteinuria, unspecified; R74.0 Nonspecific elevation of levels of transaminase and lactic acid dehydrogenase [LDH]
CPT/HCPCS: 36415; 76705; 80048; 80053; 80074; 80076; 81001; 82550; 82803; 83690; 84100; 85027; 85610; 85730; 96360; 96361; 99284; J7030

== ENCOUNTER 2018-02-11 18:45 | Emergency (ER) | payer SELFPAY ==
[2018-02-11] MEDS ORDERED: CEPHALEXIN 500 MG CAPSULE PO ONE (21:49)
[2018-02-11] MEDS ORDERED: SULFAMETHOXAZOLE/TRIMETHOPRIM 800-160 MG TABLET PO ONE (21:49)
--- NOTE | 2018-02-11 21:56 | ER Document Report ---
ED Skin Rash/Insect Bite/Abscs - General Chief Complaint: Skin Problem Stated Complaint: LEG PAIN Time Seen by Provider: 02/11/18 21:35 Mode of Arrival: Ambulatory Information source: Patient Notes: 27-year-old male presents to ED for a sore spot that he thinks might be a ingrown hair or an abscess to his right lower leg. He states it has been there for 1.5 weeks but was not getting better. Patient alert and oriented respirations regular unlabored speaking in full sentences walks with a even steady gait. TRAVEL OUTSIDE OF THE [place] IN LAST 30 DAYS: No - HPI Patient complains to provider of: Tender/swollen area Onset: Other Onset/Duration: Gradual - Half weeks Quality of pain: Sharp Severity: Moderate Pain Level: 2 Skin Character: Abscess Quality of rash: Painful Identify cause: Yes - Possibly infected hair follicle Exacerbated by: Denies Relieved by: Denies Similar symptoms previously: Yes Recently seen / treated by doctor: No - Related Data Allergies/Adverse Reactions: No Known Allergies Allergy (Verified 09/18/17 14:58) Past Medical History - General Information source: Patient - Social History Smoking Status: Current Every Day Smoker Cigarette use (# per day): Yes - Half pack a day Chew tobacco use (# tins/day): No Smoking Education Provided: Yes - 4 minutes Frequency of alcohol use: Social Drug Abuse: None Lives with: Friend Family History: Reviewed & Not Pertinent Patient has suicidal ideation: No Patient has homicidal ideation: No - Past Medical History Cardiac Medical History: Reports: None Pulmonary Medical History: Reports: None EENT Medical History: Reports: None Neurological Medical History: Reports: None Endocrine Medical History: Reports: None Renal/ Medical History: Reports: None Malignancy Medical History: Reports None GI Medical History: Reports: None Musculoskeletal Medical History: Reports Hx Musculoskeletal Trauma Skin Medical History: Reports None Psychiatric Medical History: Reports: Hx Depression Traumatic Medical History: Reports: Hx Fractures - Boxer fracture Infectious Medical History: Reports: None Surgical Hx: Negative Past Surgical History: Reports: None - Immunizations Immunizations up to date: Yes Hx Diphtheria, Pertussis, Tetanus Vaccination: Yes - dc from 2017 Review of Systems - Review of Systems Constitutional: No symptoms reported EENT: No symptoms reported Cardiovascular: No symptoms reported Respiratory: No symptoms reported Gastrointestinal: No symptoms reported Genitourinary: No symptoms reported Male Genitourinary: No symptoms reported Musculoskeletal: No symptoms reported Skin: Other - Abscess right lower leg Hematologic/Lymphatic: No symptoms reported Neurological/Psychological: No symptoms reported -: Yes All other systems reviewed and negative Physical Exam - Vital signs Vitals: Temp Pulse Resp BP Pulse Ox 98.4 F 87 16 139/85 H 97 02/11/18 18:51 02/11/18 18:51 02/11/18 18:51 02/11/18 18:51 02/11/18 18:51 Interpretation: Normal - General General appearance: Appears well, Alert - HEENT Head: Normocephalic, Atraumatic Eyes: Normal Pupils: PERRL - Respiratory Respiratory status: No respiratory distress Chest status: Nontender Breath sounds: Normal Chest palpation: Normal - Cardiovascular Rhythm: Regular Heart sounds: Normal auscultation Murmur: No - Abdominal Inspection: Normal Distension: No distension Bowel sounds: Normal Tenderness: Nontender Organomegaly: No organomegaly - Back Back: Normal, Nontender - Extremities General upper extremity: Normal inspection, Nontender, Normal color, Normal ROM , Normal temperature General lower extremity: Normal color, Normal ROM, Normal temperature, Normal weight bearing. No: Jennifer's sign Calf: Tender - Abscess right lower leg - Neurological Neuro grossly intact: Yes Cognition: Normal Orientation: AAOx4 Cameron Coma Scale Eye Opening: Spontaneous [place] Coma Scale Verbal: Oriented [place] Coma Scale Motor: Obeys Commands Cameron Coma Scale Total: 15 Speech: Normal Motor strength normal: LUE, RUE, LLE, RLE Sensory: Normal - Psychological Associated symptoms: Normal affect, Normal mood - Skin Skin Temperature: Warm Skin Moisture: Dry Skin Color: Normal Skin irregularity: Abscess Location of irregularity: Extremities - Right lower leg Character of irregularity: Erythematous Irregularity with: Swelling, Tenderness, Warmth Course - Re-evaluation Re-evalutation: 02/11/18 22:03 Site cleaned well with Betadine stab wound with a 11 blade moderate amount of purulent drainage until just bloody drainage removed then patient treated with Bactrim and Keflex sterile dressing and Coban applied. Patient was instructed on use of Epson salt soaks and to clean site at least 3-4 times a day. Patient is to return to ED for any increasing pain redness or swelling. Patient was discharged home with prescriptions for Bactrim and Keflex and instructed to follow-up with the primary doctor. - Vital Signs Vital signs: Temp Pulse Resp BP Pulse Ox 97.6 F 85 16 136/107 H 98 02/11/18 22:03 02/11/18 22:03 02/11/18 18:51 02/11/18 22:03 02/11/18 22:03 Procedures - Incision and Drainage Right Lower Leg Time completed: : Type: Simple Anesthetic type: Other - none mL's of anesthetic: 0 Blade size: 11 I&D procedure: Betadine prep applied Incision Method: Incision made by scalpel Amount/type of drainage: moderate amount of purulent drainage Discharge - Discharge Clinical Impression: Abscess of right lower leg Condition: Stable Disposition: HOME, SELF-CARE Additional Instructions: ABSCESS: You have an abscess (boil). This a pus-forming infection, usually due to staph. Some boils may be left to drain on their own, but most require lancing. From the time the tender lump first appears, it may be three or four days before the abscess is ready to kashif. Local heat and rest help at this stage of treatment. An antibiotic may prevent spread of the infection. Once the abscess is opened, packing may be placed into it. This is done so pus is not sealed inside by premature closure of the cavity. The packing will be removed at your follow-up visit or you may be advised to remove it yourself at home. Sometimes this packing must be replaced a few times during healing. The wound will heal with surprisingly little scar. Depending on the size and location of an abscess, healing can take one to four weeks. You may shower and wash the area around the incision site two or three times a day. Antibiotics may be prescribed, but are usually not necessary after an abscess has been drained. If you develop fever, chills, worsening pain, or increasing swelling in the area, call the doctor or return immediately. POST INCISION AND DRAINAGE: You have had an incision made to allow drainage of an abscess. The incision must remain open so that pus and debris can drain from the wound. If the abscess cavity is large, packing is placed. This keeps the tissues from collapsing and trapping pus inside, while the body shrinks the cavity. The packing may need to be replaced every day or two. The physician will instruct you on the packing. Keep a bulky dressing over the area. Replace it if it becomes saturated with blood or pus. Do not disturb the packing (if present). You may shower and cleanse the area with gentle soap and warm water two or three times a day. Local warmth may be soothing, and may promote faster healing. Return if you develop high fever or chills, or if you note spreading redness, increasing swelling, or increasing tenderness. CEPHALEXIN: The antibiotic you've been prescribed is a member of the cephalosporin class. This type of antibiotic covers a wide variety of infections, including those of the skin, lungs, and urinary tract. It's useful for staph infections. This antibiotic is slightly similar to the penicillin family. In rare cases , a person who is allergic to penicillin will also be allergic to this medication. If you have had a severe allergic reaction to penicillin, and have not taken this antibiotic since that time, notify your doctor. Antibiotics which cover many germs ("broad spectrum" antibiotics) are more likely to cause diarrhea or "yeast" infections. Women prone to vaginal yeast problems may suffer an attack after taking this antibiotic. In infants, oral thrush (white spots "stuck" on the cheek) or yeast diaper rash may result. See your doctor if these problems occur. Call at once if you develop itching, hives , shortness of breath, or lightheadedness. TRIMETHOPRIM-SULFA: You have been given a prescription for trimethoprim-sulfa (TMS, Septra, Bactrim). This is a combination antibiotic of the sulfa class, often used for urinary tract infections, middle ear infections, bronchitis, shigella intestinal infection, and Pneumocystis pneumonia. TMS is usually well-tolerated. Occasional side effects include nausea and decreased appetite. Septra is not recommended for infants less than two months of age. Do not take this medication if you have experienced severe side effects or allergy to sulfa medicine. You should stop this medicine at once and contact your physician if you develop any rash, joint pain, shortness of breath, bruising, or jaundice ( yellow color in the skin), or if you develop any other new or unusual symptoms. Epsom Salt Soaks Soak the wound area in a container of warm epsom salt water. If you can't get the wound area into a bucket or dodge, use a folded towel soaked in the epsom salt solution and apply to the area. Use clean hot tap water (about the temperature of a very warm bath), mixing in about one (1) teaspoon for every pint of water. Two gallon --> 16 teaspoons Epsom Salts One gallon --> 8 teaspoons Epsom Salts Two quarts --> 4 teaspoons Epsom Salts One quart --> 2 teaspoons Epsom Salts Soak the wound for about 20 minutes while gently moving it around in the water. Repeat this four (4) times a day. FOLLOW-UP CARE: Most simple abscesses will not require a follow up visit. If you had packing placed in the abscess, remove it as instructed by the physician. If you have been referred to a physician for follow-up care, call the physicians office for an appointment as you were instructed or within the next two days. If you experience worsening or a significant change in your symptoms, return to the Emergency Department at any time for re-evaluation. Prescriptions: Cephalexin Monohydrate [Keflex 500 mg Capsule] 500 mg PO QID #20 capsule Sulfamethoxazole/Trimethoprim [Septra-Ds 800-160 mg Tablet] 1 tab PO BID #20 tablet Forms: Elevated Blood Pressure
[2018-02-11 22:06] VITALS: BP 136/107
== END 2018-02-11 22:07 | disposition home or self-care (01) ==
LOC: ER 18:45
DX: L02.415 Cutaneous abscess of right lower limb (principal); F17.210 Nicotine dependence, cigarettes, uncomplicated; Z71.6 Tobacco abuse counseling
CPT/HCPCS: 87070; 87205; 99283